=== PATIENT | male | born 1955 | race Caucasian/White ===

== ENCOUNTER → 2021-01-08 03:55 | Outpatient (CLI) | payer OTHER, SELFPAY ==
[2021-01-09 01:35] LABS: SARS-CoV-2 RNA PCR Negative
== END ==
PROVIDERS: PCP Internal Medicine; Visit Provider Internal Medicine Gastroenterology
DX: Z01.812 Encounter for preprocedural laboratory examination (principal); Z20.822 Contact with and (suspected) exposure to COVID-19
CPT/HCPCS: C9803; U0003; U0005

== ENCOUNTER 2021-01-12 01:03 | Day surgery (SDC) | payer OTHER, SELFPAY ==
[2021-01-03 14:57] VITALS: BMI 40.2
--- NOTE | 2021-01-12 09:53 | WPDANESEPPF ---
Anes - Initial Pre Proc Eval Procedure: Operation Date: 01/12/21 10:30 Proposed Procedures p Screening Colonoscopy - Gregory Kay MD Date/Time: 01/12/21 09:53 Surgeon: Gregory Kay MD Pre Op Diagnosis: neoplasm screening Patient Data Age: 65 Gender: M Height: 1.73 m Weight: 120 kg Allergies Allergy/AdvReac Type Severity Reaction Status Date / Time No Known Allergies Allergy Mild Verified 01/03/21 14:56 Home Medications Medication Instructions Recorded Confirmed Type lisinopril 20 mg tablet 20 mg PO DAILY #90 tablet 08/13/20 01/03/21 Rx metformin 1,000 mg tablet,extended 1,000 mg PO DAILY #90 tablet 08/13/20 01/03/21 Rx release 24hr meloxicam 15 mg PO DAILY PRN 01/03/21 01/03/21 History prednisolone acetate 1 drp EACH EYE TID 01/03/21 01/03/21 History Patient hx anesthesia problems: none Family hx anesthesia problems: none [facility] Past Medical History Medical History (Updated 01/12/21 @ 09:54 by Marcello Blue MD) Morbid obesity Family History Family History Father Hypertension Diabetes mellitus Mother Diabetes mellitus Sibling Diabetes mellitus Unknown Diabetes mellitus Social History Social History Smoking status: Never smoker Second hand tobacco smoke exposure: No Alcohol intake: never Alcohol use details: very rarely Substance use: current Substance use type: marijuana Last use: 01/01/2021 Living arrangements: with family Spiritual care concerns: No Anes - Eval Final PreProcedure Day of Procedure 01/12/21 09:53 Patient weight: morbidly obese Heart: regular rate and rhythm Lungs: clear to auscultation Airway: Mallampati scale class III Neurological: alert and oriented Last oral intake: >/= 8 hours ASA classification: III Emergent: no Anesthetic plan: proceed Anesthesia type and monitoring: general GIVS and standard monitoring Informed Consent: The patient's anesthetic plan and its attendant risks and benefits were discussed with the patient/family/POA. Questions were solicited and answers provided to the satisfaction of the patient/family/POA.
--- NOTE | 2021-01-12 09:57 | WPDGICN ---
Assessment and Plan Assessment and plan (1) Encounter for screening colonoscopy: Code(s): Z12.11 - Encounter for screening for malignant neoplasm of colon Status: Acute Assessment and Plan: Patient presents for screening colonoscopy. This possibly may have had colon polyps many years ago. further recommendations will be given after endoscopy. GI Consult Note Consult date/time: 01/12/21 09:57 HPI: Abdirizak Garcia is a 65 year old male Presents for colonoscopy. Patient states his current weight appetite bowel movements are normal. He denies abdominal pain. He has had no bleeding. He reports having had a colonoscopy in 2006 biopsies were taken is uncertain but may have had a colon polyp at that time. Family history is noncontributory. Most recently has had cataract surgery and has had some difficulty with healing. Review of Systems Review of Systems: All systems reviewed & are unremarkable except as noted in HPI and below PMFSH Past Medical History Medical History (Updated 01/12/21 @ 09:59 by Gregory Kay MD) Morbid obesity Family History Family History Father Hypertension Diabetes mellitus Mother Diabetes mellitus Sibling Diabetes mellitus Unknown Diabetes mellitus Social History Social History Smoking status: Never smoker Second hand tobacco smoke exposure: No Alcohol intake: never Alcohol use details: very rarely Substance use: current Substance use type: marijuana Last use: 01/01/2021 Living arrangements: with family Spiritual care concerns: No Meds Home Medications and Allergies Home Medications Medication Instructions Recorded Confirmed Type lisinopril 20 mg tablet 20 mg PO DAILY #90 tablet 08/13/20 01/03/21 Rx metformin 1,000 mg tablet,extended 1,000 mg PO DAILY #90 tablet 08/13/20 01/03/21 Rx release 24hr meloxicam 15 mg PO DAILY PRN 01/03/21 01/03/21 History prednisolone acetate 1 drp EACH EYE TID 01/03/21 01/03/21 History Allergies Allergy/AdvReac Type Severity Reaction Status Date / Time No Known Allergies Allergy Mild Verified 01/03/21 14:56 Exam Narrative: Physical exam reveals patient be alert. Vital signs stable. HEENT exam is unremarkable. Patient is anicteric. Lungs are clear to auscultation and percussion. Heart is without murmur or extra sounds. Abdominal exam bowel sounds are present soft nontender with no organomegaly. Digital external rectal exam normal.
[2021-01-12 09:59] VITALS: BP 135/88; PULSE 81; RESP 20; TEMP 35.9; O2SAT 98; BMI 42.2
[2021-01-12] MEDS: LACTATED RINGERS 1,000 ML 150 ML IV CONT (10:18)
[2021-01-12 10:19] LABS: Glucose Point of Care 108 mg/dl (65-105)
[2021-01-12 10:49] VITALS: BP 135/88; PULSE 81; RESP 20; O2SAT 98
[2021-01-12 10:59] VITALS: BP 113/94; PULSE 88; RESP 18; O2SAT 99
== END 2021-01-12 11:18 | disposition home or self-care (01) ==
PROVIDERS: PCP Internal Medicine; Visit Provider Internal Medicine Gastroenterology
PROC: 0DJD8ZZ Inspection of Lower Intestinal Tract, Via Natural or Artificial Opening Endoscopic (ICD-10-PCS; CPT 45378; principal; 2021-01-12 10:30)
DX: Z12.11 Encounter for screening for malignant neoplasm of colon (principal); D12.5 Benign neoplasm of sigmoid colon; F12.90 Cannabis use, unspecified, uncomplicated; Z79.84 Long term (current) use of oral hypoglycemic drugs; E66.01 Morbid (severe) obesity due to excess calories; Z68.41 Body mass index [BMI] 40.0-44.9, adult
CPT/HCPCS: 45385; 82948; 88305; J2001; J2704; J7120

== ENCOUNTER 2022-02-20 11:27 | Emergency (ER) | payer OTHER, SELFPAY ==
--- NOTE | 2022-02-20 11:34 | ED.EAR ---
HPI - Ear Problem General Chief complaint: Ear Stated complaint: lt ear pain Time Seen by Provider: 02/20/22 11:34 Source: patient Mode of arrival: ambulatory Limitations: no limitations History of Present Illness HPI Narrative: Mr. Garcia is a 66-year-old male patient presenting to the clinic today with complaints of left ear pain x1 week. He reports he gets recurrent/chronic ear infections in his left ear. He states that he normally sees Dr. Justice however, he called the office this morning and learned that Dr. Justice has retired. He has tried to contact other ENTs without success today so [facility]. States that he normally gets eardrops as well as oral antibiotics for his condition. Reports getting ear infections usually twice per year. States that they usually treat sinusitis as well as the ear infection as Dr. Justice has stated in the past that if 1 has not treated the other one will not resolve. He denies any nasal congestion or sinus pressure at this time. He denies any fever or chills. He denies any known exposure to anyone with COVID, flu, or strep. Related Data Allergies Allergy/AdvReac Type Severity Reaction Status Date / Time No Known Allergies Allergy Mild Verified 02/20/22 11:34 Review of Systems Review of Systems: Pertinent positives per HPI. Patient denies any fever, chills, rash, headache, visual changes, dizziness, cough, runny nose, sore throat, shortness of breath, chest pain, palpitations, nausea, vomiting, diarrhea, constipation, abdominal pain, or any urinary issues. [facility] Past Medical History Medical History Morbid obesity Surgical History Surgical History History of cataract surgery Family History Family History Father Hypertension Diabetes mellitus Mother Diabetes mellitus Sibling Diabetes mellitus Unknown Diabetes mellitus Social History Social History Smoking status: Never smoker Second hand tobacco smoke exposure: No Alcohol intake: never Alcohol use details: very rarely Substance use: current Substance use type: marijuana Last use: 01/01/2021 Spiritual care concerns: No Comments At the time of my signature, I reviewed and agree with the nursing past medical, surgical, social, and family history. There is no relevant family history pertinent to the patient complaint. Exam Narrative: General: Well-developed, well nourished, in no apparent distress Head: Normocephalic, atraumatic Eyes: Pupils equally round and reactive to light bilaterally, EOM intact, sclera and conjunctive clear, no discharge, lids normal Ears: Right TMs intact, clear, with some scarring over the TM, unable to visualize the left TM due to left ear canals swelling and discharge, yellowish white discharge noted in the left ear canal, grossly hearing normal. Nose: Nares patent, no discharge, no inflammation, no sinus tenderness. Mouth: Oropharynx without lesions or masses, good dentition, MMM. Neck: Supple, trachea midline, no enlargement of anterior or posterior cervical nodes, no thyroid masses or goiter palpable. Cardio: Regular rate and rhythm, s1 and s2 normal, no murmur appreciated. Resp: Clear to auscultation bilaterally anteriorly and posteriorly, no rhonchi, rales, wheezing or rubs Course Course Emergency Course: Portions of this record may have been created with voice recognition software. Level of Care: Express Care Visit Vital Signs Vital signs: Vital Signs Temperature 36.4 C 02/20/22 11:37 Pulse Rate 77 02/20/22 11:37 Respiratory Rate 16 02/20/22 11:37 Blood Pressure 124/80 02/20/22 11:37 Pulse Oximetry 99 02/20/22 11:37 Oxygen Delivery Room Air 02/20/22
[2022-02-20 11:37] VITALS: BP 124/80; PULSE 77; RESP 16; TEMP 36.4; O2SAT 99
== END 2022-02-20 11:59 | disposition home or self-care (01) ==
PROVIDERS: Emergency Provider Nurse Practitioner Family; PCP Internal Medicine
DX: H60.312 Diffuse otitis externa, left ear (principal); E66.01 Morbid (severe) obesity due to excess calories; Z68.41 Body mass index [BMI] 40.0-44.9, adult
CPT/HCPCS: 99213; G0463

== ENCOUNTER 2023-06-22 14:24 | Outpatient (CLI) | payer MEDICARE, SELFPAY ==
--- NOTE | ~2023-06-22 | MR_ITS ---
EXAMINATION: MR cervical spine wo con DATE: 06/22/2023 15:23 INDICATION: Radiculopathy, cervical region. TECHNIQUE: Magnetic resonance imaging (MRI) of the cervical spine was performed without intravenous c ontrast. COMPARISON: None FINDINGS: There is 11 degrees levoscoliosis of cervicothoracic spine. There is mild kyphosis of cervi tiago spine. There is 2 mm anterolisthesis of C6 on C7. Vertebral body heights are normal. There is mil dly decreased disc height at C4-C5, severely decreased disc height at C5-C6, and moderately decreased disc height at C6-C7. The spinal cord signal intensity is normal. The following disc levels are spec ifically discussed: C2-C3: The disc does not extend beyond the endplate margin. There is moderate right and mild left unc overtebral joint osteoarthritis. There is severe bilateral facet joint osteoarthritis. There is moder ate right neural foraminal stenosis. There is no central canal stenosis. C3-C4: The disc is bulging. There is severe bilateral uncovertebral joint osteoarthritis. There is se sweetie bilateral facet joint osteoarthritis. There is moderate bilateral neural foraminal stenosis. The re is no central canal stenosis. C4-C5: This is bulging. There is severe bilateral uncovertebral joint osteoarthritis. There is severe bilateral facet joint osteoarthritis. There is severe right and moderate left neural foraminal steno sis. There is moderate central canal stenosis with ventral and dorsal indentation of the spinal cord. C5-C6: The disc is bulging with superimposed central extrusion. There is severe bilateral uncovertebr al joint osteoarthritis. There is severe bilateral facet joint osteoarthritis. There is moderate righ t and mild left neural foraminal stenosis. There is moderate central canal stenosis with ventral and dorsal indentation of the spinal cord. C6-C7: The disc is bulging. There is severe bilateral uncovertebral joint osteoarthritis. There is se sweetie bilateral facet joint osteoarthritis. There is moderate bilateral neural foraminal stenosis. The re is mild central canal stenosis with ventral indentation of the spinal cord. C7-T1: There is a central extrusion. There is moderate bilateral uncovertebral joint osteoarthritis. There is severe bilateral facet joint osteoarthritis. There is mild bilateral neural foraminal stenos is. There is mild central canal stenosis. IMPRESSION: 1. Severe cervical spondylosis. 2. Cervicothoracic levoscoliosis. Reviewed, dictated and finalized at location A. [employer]
== END 2023-06-22 14:25 | disposition home or self-care (01) ==
LOC: ANHIMG 14:28
PROVIDERS: PCP Internal Medicine; Visit Provider Physician Assistant
DX: M47.22 Other spondylosis with radiculopathy, cervical region (principal)
CPT/HCPCS: 72141

== ENCOUNTER 2023-06-28 13:15 | Outpatient (RCR) | payer MEDICARE, SELFPAY ==
--- NOTE | 2023-06-18 16:48 | PTOPEVAL1 ---
Assessment and note entered by Teo Jang, PT Evaluation Information Assessment Status Evaluation Diagnosis Left Foot Drop Onset 2020 Subjective Information Reports that the left foot drop is not consistent and comes and goes. He is unsure what the problem is. Was concerned that he is just a lazy walker. he has had 3 falls, the first of which resulting in a concussion. He has a history of spinal stenosis. 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 When he experiences foot drop it is coupled with pain and cramping. He has trouble walking up steps and he feels he has no strength in his right leg. Has to step up with left leg. He feels muscle weakness in the groin with extended walking. e is scheduled for a cervical x-ray within the next month. Majority of issues happen when laying down in bed. Reported Pain Level Pain Score 0: Self Report Assessment PT Clinical Summary Patient presets with symptoms consistent with lumbar stenosis and onset knee and L hip OA with missing functional ROM and weakness. Patient will benefit from skilled therapy to address ROM and strength deficits for improved gross functional improvement. Plan of Care Interventions Hot Pack/Cold Pack,Manual Therapy,Neuro Re- education,Therapeutic Activities,Therapeutic Exercise PT Services Indicated Yes Treatment Frequency and 2x/week for 8 visits Duration These treatments will address the objective and functional deficits as defined above. The patient will be advanced safely and appropriately in order for the patient to progress towards his/her prior level of function. Additional exercises will be introduced and as well as a comprehensive home exercise program upon discharge, if needed, ?to ensure carryover of functional gains achieved in the clinic. This treatment plan has been reviewed and agreement upon by the patient.
--- NOTE | 2023-06-18 16:48 | OPREHPOC ---
Outpatient Therapy Plan of Care This is a Multidisciplinary Plan of Care that may contain components documented by all disciplines (PT, OT, and ST.) PT Problem 1 PT Problem #1 Knowledge Deficit PT Goal 1 Goal Independent with HEP Target Visit 4 PT Problem 2 PT Problem #2 Impaired Range of Motion PT Goal 1 Goal Improve gideon hip abduction to 45 degrees to reduce hi[p restrictions with walking and ADLs Target Visit 8 PT Goal 2 Goal Improve gideon ankle dorsiflexion ROM to 10 degrees to improve toe off and stride Target Visit 8 PT Problem 3 PT Problem #3 Impaired Strength PT Goal 1 Goal Improve gideon hip abduction strength to 4+/5 to improve pelvic and lumbar stability with ADLs Target Visit 8 PT Goal 2 Goal Improve L ankle dorsiflexion strength to 5/5 to improve foot clearance with gait Target Visit 8 PT Problem 4 PT Problem #4 Impaired Gait PT Goal 1 Goal Ambulate with even stride length bilaterally Target Visit 8
--- NOTE | 2023-12-10 07:35 | PCPTNOTE ---
Addendum entered by Teo Jang, PT 12/13/23 15:58: Patient was seen for a total of 5 visits. Original Note: Patient failed to return to physical therapy. Last seen on 07/03/23. Patient discharged from skilled therapy at this time.
== END 2023-09-12 12:34 | disposition home or self-care (01) ==
LOC: ANHPT 13:15
PROVIDERS: PCP Internal Medicine; Visit Provider Physician Assistant
DX: M21.372 Foot drop, left foot (principal)
CPT/HCPCS: 97110; 97140; 97161; 97530